=== PATIENT | female | born 1965 | race American Indian/Alaskan Native ===

== ENCOUNTER 2018-02-16 17:43 | Emergency (ER) | payer OTHER, SELFPAY ==
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
--- NOTE | 2018-02-16 19:15 | ER ---
Nurse's Notes [facility] Name: Loren Burgess Age: 52 yrs Sex: Female : 1965 Arrival Date: 02/16/2018 Time: 17:47 Bed 28 Private MD: JAYESH MCCONNELL Diagnosis: Unspecified injury of head;Sprain of ligaments of cervical spine Presentation: 02/16 17:48 Presenting complaint: Patient states: i was walking at work and the floor was uneven, tw2 tripped and fell landed on my left shoulder and hit my head on the ground and my left knee. Transition of care: patient was not received from another setting of care. Onset of symptoms was February 16, 2018. Risk Assessment: Do you want to hurt yourself or someone else? Patient reports no desire to harm self or others. Initial Sepsis Screen: Does the patient meet any 2 criteria? No. Patient's initial sepsis screen is negative. Does the patient have a suspected source of infection? No. Patient's initial sepsis screen is negative. Care prior to arrival: None. 17:48 Method Of Arrival: Ambulatory tw2 17:48 Acuity: DEWAYNE 3 tw2 Triage Assessment: 17:53 General: Appears in no apparent distress. well groomed, Behavior is calm, cooperative, tw2 appropriate for age. Pain: Complains of pain in "head, shoulder, arm, knee" LEFT. Cardiovascular: Denies chest pain, shortness of breath, Patient's skin is warm and dry. Respiratory: Airway is patent Respiratory effort is even, unlabored, Respiratory pattern is regular, symmetrical. 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 - Social history:: Smoking status: Patient/guardian denies using tobacco. - Ebola Screening: : Patient denies travel to an Ebola-affected area in the 21 days before illness onset. Screenin:28 Abuse screen: Denies threats or abuse. Denies injuries from another. Nutritional rv screening: No deficits noted. Tuberculosis screening: No symptoms or risk factors identified. Fall Risk None identified. Assessment: 18:26 General: Appears in no apparent distress. comfortable, Behavior is calm, cooperative. rv Pain: Complains of pain in left eye. Neuro: Level of Consciousness is awake, alert, obeys commands, Oriented to person, place, time, situation. Cardiovascular: Capillary refill < 3 seconds. Respiratory: Airway is patent. GI: No signs and/or symptoms were reported involving the gastrointestinal system. : No signs and/or symptoms were reported regarding the genitourinary system. EENT: No signs and/or symptoms were reported regarding the EENT system. Derm: Bruising that is dark purple, on LEFT EYE, PERIORBITAL. Vital Signs: 17:50 BP 163 / 103; Pulse 100; Resp 18; Temp 98.9(TE); Pulse Ox 100% on R/A; Pain 4/10; tw2 19:03 BP 130 / 80; Pulse 105; Pulse Ox 98% on R/A; rv ED Course: 17:47 Patient arrived in ED. sb2 17:47 OOT, OOT is Private Physician. sb2 17:50 Triage completed. tw2 17:50 Arm band placed on. tw2 18:20 Ranjit Nevarez PA is PHCP. [facility] 18:20 Alexy Tyson MD is Attending Physician. [facility] 18:28 Patient has correct armband on for positive identification. Bed in low position. Call rv light in reach. Side rails up X 1. Pulse ox on. NIBP on. 18:[address] via stretcher. nj 18:44 CT Head C Spine In Process Unspecified. EDMS 19:04 Awaiting radiology results. rv 19:19 No provider procedures requiring assistance completed. Patient did not have IV access rv during this emergency room visit. Administered Medications: No medications were administered Outcome: 19:14 Discharge ordered by . jm 19:20 Discharged to home ambulatory. rv 19:20 Condition: good 19:20 Discharge instructions given to patient, Instructed on discharge instructions, follow up and referral plans. 19:20 Patient left the ED. rv Signatures: Dispatcher [employer] EDMS Ranjit Nevarez, PA PA jmm Lemons, Britt, RN RN tw2 Leo Davenport Sheri sb2 Geo Andres, RN RN rv
--- NOTE | 2018-02-16 19:15 | EDPHYS ---
Physician Documentation [facility] Name: Loren Burgess Age: 52 yrs Sex: Female : 1965 Arrival Date: 02/16/2018 Time: 17:47 Bed 28 Private MD: JAYESH MCCONNELL ED Physician Alexy Tyson HPI: 02/16 18:29 This 52 yrs old Other Female presents to ER via Ambulatory with complaints of FELL AT [facility] WORK. 18:29 Details of fall: The patient fell from an upright position, while walking. Onset: The [facility] symptoms/episode began/occurred acutely, just prior to arrival. This is a 52 year old female with a history of HTN that presents to the ED with left sided headache and neck pain following a fall. Patient states she tripped on cement hitting the left side of her head. Denies LOC, complains of neck pain on rotation. Denies other injury. . 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 - Social history:: Smoking status: Patient/guardian denies using tobacco. - Ebola Screening: : Patient denies travel to an Ebola-affected area in the 21 days before illness onset. ROS: 18:29 Constitutional: Negative for fever, chills, and weight loss, Eyes: Negative for injury, jmm pain, redness, and discharge, Cardiovascular: Negative for chest pain, palpitations, and edema, Respiratory: Negative for shortness of breath, cough, wheezing, and pleuritic chest pain, MS/Extremity: Negative for injury and deformity. 18:29 Neck: Positive for pain with movement. 18:29 Neuro: Positive for headache. 18:29 All other systems are negative. Exam: 18:29 Constitutional: This is a well developed, well nourished patient who is awake, alert, jmm and in no acute distress. 18:29 Cardiovascular: Regular rate and rhythm. No edema appreciated Respiratory: Normal respirations, no respiratory distress appreciated 18:29 Head/face: Exam is negative for gil signs, deformity, ecchymosis, hematoma, raccoon eyes. 18:29 Eyes: Extraocular movements: intact throughout. 18:29 Neck: C-spine: appears grossly normal, no vertebral tenderness, ROM/movement: pain, that is moderate, with rotation to the right. 18:29 Musculoskeletal/extremity: ROM: intact in all extremities, No bony tenderness is appreciated. . 18:29 Skin: Appearance: Color: normal in color. 18:29 Neuro: Orientation: is normal, Mentation: is normal, Memory: is normal. 18:29 Psych: Behavior/mood is pleasant, cooperative. Vital Signs: 17:50 BP 163 / 103; Pulse 100; Resp 18; Temp 98.9(TE); Pulse Ox 100% on R/A; Pain 4/10; tw2 19:03 BP 130 / 80; Pulse 105; Pulse Ox 98% on R/A; rv MDM: 18:28 Patient medically screened. [facility] 18:28 Data reviewed: vital signs, nurses notes. [facility] 19:13 Counseling: I had a detailed discussion with the patient and/or guardian regarding: the [facility] historical points, exam findings, and any diagnostic results supporting the discharge/admit diagnosis, radiology results, the need for outpatient follow up, to return to the emergency department if symptoms worsen or persist or if there are any questions or concerns that arise at home. 02/16 18:34 Order name: CT Head C Spine; Complete Time: 19:09 [facility] Administered Medications: No medications were administered Disposition: 02/16/18 19:14 Discharged to Home. Impression: Unspecified injury of head, Sprain of ligaments of cervical spine. - Condition is Stable. - Discharge Instructions: Head Injury, Adult, Cervical Sprain. - Medication Reconciliation Form, Thank You Letter, Antibiotic Education, Prescription Opioid Use form. - Follow up: Private Physician; When: 2 - 3 days; Reason: Recheck today's complaints, Continuance of care, Re-evaluation by your physician. Addendum: 02/18/2018 15:38 Co-signature as Attending Physician, Alexy Tyson MD. g s Signatures: Dispatcher [facility] Ranjit Nevarez PA PA jmm Wise, Tara, RN RN tw2 Alexy Tyson MD MD Geo Andres RN RN rv Corrections: (The following items were deleted from the chart) 02/16 19:20 19:14 02/16/2018 19:14 Discharged to Home. Impression: Unspecified injury of head; rv Sprain of ligaments of cervical spine. Condition is Stable. Forms are Medication Reconciliation Form, Thank You Letter, Antibiotic Education, Prescription Opioid Use. Follow up: Private Physician; When: 2 - 3 days; Reason: Recheck today's complaints, Continuance of care, Re-evaluation by your physician. chivo
[2018-02-16 19:32] VITALS: TEMP 98.9
[2018-02-16 19:33] VITALS: BP 130/80; O2SAT 98
== END 2018-02-16 19:20 | disposition home or self-care (01) ==
LOC: ER 17:43
DX: S13.4XXA Sprain of ligaments of cervical spine, initial encounter (principal); S09.90XA Unspecified injury of head, initial encounter; W01.198A Fall on same level from slipping, tripping and stumbling with subsequent striking against other object, initial encounter; Y93.01 Activity, walking, marching and hiking; Y92.9 Unspecified place or not applicable; Z79.82 Long term (current) use of aspirin; I10 Essential (primary) hypertension
CPT/HCPCS: 70450; 72125; 99284

== ENCOUNTER 2020-06-21 21:02 | Emergency (ER) | payer OTHER ==
--- OUTSIDE RECORDS SUMMARY | 2020-06-21 21:05 | XMS REPORT | Clinical Summary ---
:1965 Author Organization [facility] Address [address] [place] [address] Care Team Providers Name Role Phone Chandrika Gutiérrez MD Primary Care Provider [phone] Allergies No Known Active Allergies Medications Medication Sig Dispensed Refills Start Date End Date Status SINGULAIR 10 mg 0 10/01/2016 Act leoncio tablet carvedilol (COREG) Take 6.25 mg by 0 Active 6.25 MG tablet mouth 2 (two) times a day with meals. lovastatin (MEVACOR) Take 40 mg by mouth 0 Active 10 MG tablet nightly. aspirin (ECOTRIN) 81 Take 81 mg by mouth 0 Active MG enteric coated daily. tablet clobetasol (TEMOVATE) Indications: lichen 30 g 0 10/15/19 17 Active 0.05 % sclerosus and ointmentIndications: atrophicus. Apply lichen sclerosus and daily on affected atrophicus area x 2 weeks then qod x 2 weeks then 2/ week x2 weeks Active Problems No known active problems Surgical History Surgery Date Site/Laterality Comments HYSTERECTOMY 07/04/2009 - 07/03/2010 SECTION Medical History Medical History Date Comments Acid reflux Hypertension Hypercholesteremia Family History Medical History Relation Name Comments Hypertension Father Stroke Father Diabetes Mother Hypertension Mother Diabetes Sister Relation Name Status Comments Father Mother Sister Social History Tobacco Use Types Packs/Day Years Used Date Never Smoker Alcohol Use Drinks/Week oz/Week Comments No Sex Assigned at Date Recorded Not on file Obstetrics History Grav Para Term Pre Abrt (TAB) (SAB) (Ect) Mult Lvng Comments 2 2 Date Outcome GA Total Labor/2nd/3rd Weight Sex Delivery Anes PTL Janet A 1 A5 Name Clin Labor 08/01 Vag-Spont 11/10 CS-Unspec /2002 Last Filed Vital Signs Not on file Plan of Treatment Health Maintenance Due Date Last Done Comments COVID-19 VACCINE (#1) 1980 CERVICAL CANCER SCREENING 1985 BREAST CANCER SCREENING 2014 COLONOSCOPY SCREENING 2014 SHINGLES VACCINES (#1) 2014 INFLUENZA VACCINE 02/02/2020 Results Not on fileafter 06/21/2019 ([place]) [place] [address] Advance Directives For more information, please contact: [phone] Type Date Recorded 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
[2020-06-21 21:17] LABS: Absolute Lymphocytes (CBC) 3.5 K/uL (0.7-4.9); Basophils % 0.4 % (0-1.3); Hematocrit 42.5 % (36.0-45.0); Lymphocytes % 51.2 % (15.3-44.8); RBC Red Blood Cell Count 4.65 M/uL (3.86-4.86)
[2020-06-21 21:21] LABS: Protime INR 0.91
[2020-06-21 21:29] LABS: BUN Blood Urea Nitrogen 14 mg/dL (7-18); Bicarbonate 31 mmol/L (21-32); Glucose Level 109 mg/dL (74-106); Potassium 3.7 mmol/L (3.5-5.1); Sodium Level 140 mmol/L (136-145)
[2020-06-21 21:40] LABS: Blood Morphology Comment NOT SEEN (NOT SEEN); Platelet Estimate ADEQ
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
[2020-06-21] MEDS ORDERED: TETANUS & DIPHTHERIA TOX,ADULT 0.5 ML VIAL ONE (21:49)
[2020-06-21] MEDS ORDERED: LIDOCAINE 1% MPF 5 ML VIAL ONE (23:06)
[2020-06-21] MEDS ORDERED: CEFAZOLIN SODIUM 1 GM/VIAL ONE (23:07)
[2020-06-21] MEDS ORDERED: NA CHLORIDE 0.9% 50 ML ONE (23:14)
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
[2020-06-24 05:55] VITALS: TEMP 97.9; O2SAT 100
[2020-06-24 05:58] VITALS: BP 157/94
== END 2020-06-22 01:19 | disposition home or self-care (01) ==
LOC: ER 21:02
DX: S00.01XA Abrasion of scalp, initial encounter (principal); X95.9XXA Assault by unspecified firearm discharge, initial encounter; Y93.89 Activity, other specified; Y92.014 Private driveway to single-family (private) house as the place of occurrence of the external cause; Z23 Encounter for immunization
CPT/HCPCS: 36415; 70450; 80048; 85025; 85610; 85730; 86850; 86900; 86901; 90471; 90714; 96365; 99291; 99292; J0690

== ENCOUNTER 2020-06-25 07:57 | Day surgery (SDC) | payer OTHER ==
--- NOTE | 2020-06-24 14:14 | RAD REPORT ---
EXAM DESCRIPTION: RAD - Chest Pa And Lat (2 Views) - 06/24/2020 2:06 pm CLINICAL HISTORY: pre opI am going to foreign body removal scalp COMPARISON: None TECHNIQUE: Frontal and lateral views of the chest were obtained. FINDINGS: The lungs are clear of mass, consolidation or failure. Slight prominence of the interstiti al pattern is believed to be normal baseline for patient. Heart size is normal and central vasculat ure is within normal limits. No pleural effusion or pneumothorax seen. No acute bony finding noted. No aortic abnormality. IMPRESSION: No acute cardiopulmonary process.
[2020-06-25] MEDS ORDERED: FENTANYL CITR 100 MCG/2 ML ONE (08:25)
[2020-06-25] MEDS ORDERED: propofoL 200 MG/20 ML VIAL IV ONE (08:25)
[2020-06-25] MEDS ORDERED: MIDAZOLAM HCL 2 MG/2 ML INJ ONE (08:25)
[2020-06-25] MEDS ORDERED: dexAMETHasone 10 MG/ML VIAL ONE (08:25)
[2020-06-25] MEDS ORDERED: LIDOCAINE 2% MPF 5 ML VIAL ONE (08:26)
[2020-06-25] MEDS ORDERED: NA CIT/CITRIC AC 30 ML ORAL UDC PO ONE (08:30)
[2020-06-25] MEDS ORDERED: Ringers Lactate 1,000 ML IV ONE (08:34)
[2020-06-25] MEDS ORDERED: CEFAZOLIN/SWI 1gm 1 GM/10 ML SYR ONE (08:35)
[2020-06-25] MEDS ORDERED: NA CIT/CITRIC AC 30 ML ORAL UDC ONE (08:39)
[2020-06-25] MEDS ORDERED: ONDANSETRON 4 MG/2 ML VIAL ONE ×2 (09:09→10:20)
--- OUTSIDE RECORDS SUMMARY | 2020-06-25 09:15 | XMS REPORT | Clinical Summary ---
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
[2020-06-25] MEDS ORDERED: Mastisol Adhesive Liq ONE (09:46)
[2020-06-25] MEDS ORDERED: KETOROLAC 30 MG/ML INJ ONE (09:49)
[2020-06-25] MEDS ORDERED: METOCLOPRAMIDE 10 MG/2mL INJ ONE (10:21)
[2020-06-25] MEDS ORDERED: PROMETHAZINE INJ 25 MG/ML AMP ONE (10:21)
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
[2020-06-25 12:23] VITALS: BP 107/64; TEMP 98; O2SAT 99
== END 2020-06-25 13:00 | disposition home or self-care (01) ==
LOC: OR 07:57
PROVIDERS: ATTEND Surgery
PROC: 0JC00ZZ Extirpation of Matter from Scalp Subcutaneous Tissue and Fascia, Open Approach (ICD-10-PCS; principal; 2020-06-25 09:00)
DX: M79.5 Residual foreign body in soft tissue (principal); Z20.828 Contact with and (suspected) exposure to other viral communicable diseases; Z83.3 Family history of diabetes mellitus; Z82.3 Family history of stroke; Z82.49 Family history of ischemic heart disease and other diseases of the circulatory system
CPT/HCPCS: 93005; 87070; 87205; 88300; 71046; 76000; 10121; U0002; J2704; J2765; J2550; J2250; J3010; J1100; J0690; J7120; J2405